=== PATIENT | female | born 2000 | race Hispanic/Latino ===

== ENCOUNTER → 2022-06-05 | Outpatient (CLI) | payer OTHER ==
[2022-06-06 09:44] LABS: BASOPHILS % (AUTO) 0.5 % (0.0-5.0); EOSINOPHILS % (AUTO) 1.5 % (0.0-8.0); HEMATOCRIT 39.3 % (36-48); LYMPHOCYTES % (AUTO) 34.1 % (21.0-51.0); MEAN CORPUSCULAR HEMOGLOBIN 27.7 pg (27.0-33.0); MEAN CORPUSCULAR HGB CONC 33.6 g/dL (32.0-36.0); MEAN CORPUSCULAR VOLUME 82.6 fL (79-99); MONOCYTES % (AUTO) 9.2 % (3.0-13.0); NEUTROPHILS % (AUTO) 54.4 % (40.0-77.0); PLATELET COUNT (AUTO) 264 K/uL (130-400); RED BLOOD CELL COUNT(AUTO) 4.76 MIL/uL (4.00-5.50); RED CELL DISTRIBUTION WIDTH 15.8 % (11.0-15.5); WHITE BLOOD COUNT (AUTO) 6.7 K/uL (4.8-10.8)
[2022-06-06 10:04] LABS: HEMOGLOBIN A1C 5.3 % (4.0-6.0)
[2022-06-06 10:10] LABS: ALBUMIN 4.1 g/dL (3.5-5.0); CREATININE 0.7 mg/dL (0.5-1.5); POTASSIUM 3.4 mmol/L (3.5-5.1); THYROID STIMULATING HORMONE 1.34 uIU/mL (0.36-3.74); TOTAL PROTEIN, SERUM 7.9 g/dL (6.0-8.3)
[2022-06-06 10:13] LABS: RAPID PLASMA REAGIN NONREACTIVE (NONREACTIVE)
== END | disposition home or self-care (01) ==
LOC: LAB 09:30
PROVIDERS: ATTEND Obstetrics & Gynecology
DX: Z13.6 Encounter for screening for cardiovascular disorders (principal); Z13.0 Encounter for screening for diseases of the blood and blood-forming organs and certain disorders involving the immune mechanism; Z13.1 Encounter for screening for diabetes mellitus; E11.9 Type 2 diabetes mellitus without complications; Z13.220 Encounter for screening for lipoid disorders; Z11.3 Encounter for screening for infections with a predominantly sexual mode of transmission
CPT/HCPCS: 36415; 80053; 80061; 83036; 84443; 85025; 86592; 86701; 87340; 87390

== ENCOUNTER → 2022-12-19 | Outpatient (CLI) | payer OTHER | END | disposition home or self-care (01) | LOC: LAB 07:44 | PROVIDERS: ATTEND Obstetrics & Gynecology | DX: Q76.0 Spina bifida occulta (principal) | CPT/HCPCS: 36415; 82105 ==

== ENCOUNTER 2023-05-21 09:53 | Observation (INO) | payer OTHER ==
[~2023-05-21] VITALS: Ht 157.5 cm; Wt 64.9 kg
== END 2023-05-21 12:20 | disposition home or self-care (01) ==
LOC: LDH 09:53
PROVIDERS: ADMIT Obstetrics & Gynecology; ATTEND Obstetrics & Gynecology
DX: Z34.83 Encounter for supervision of other normal pregnancy, third trimester (principal); Z3A.38 38 weeks gestation of pregnancy
CPT/HCPCS: 59025; 76805; G0378 ×2; G0379

== ENCOUNTER 2025-07-22 08:13 | Emergency (ER) | payer OTHER ==
[~2025-07-22] VITALS: Ht 154.9 cm; Wt 53.5 kg
[~2025-07-22 08:13] MED LIST: PREN-226 PO
--- NOTE | 2025-07-22 08:48 | ERN ---
ED Note History of Present Illness Stated Complaint: HEADACHE Chief Complaint: Headache Time Seen by MD: 08:13 Dictation: 24-year-old female no past medical history remarkable presents to emergency room with the complaints of headache for the past two days. Patient states that she has progressively had worsening headache for the point where she took Motrin and Tylenol with minimal effects. Patient states that the pain is in the front side of the head. No vomiting or diarrhea. Associated nausea. No chest pain. No palpitations. No urinary symptoms. Of note patient has a younger child at home with a similar URI symptoms. Allergies: Coded Allergies: No Known Drug Allergies (Unverified Allergy, Unknown, 05/21/23) Home Meds Reported Medications Vit No.179/Iron/Folic ( Tablet) 1 Each Tablet, 1 EACH PO HS, TAB 05/29/23 Past Medical History Past Medical History: No Pertinent History Surgical History: None Review of System Dictation Positive for headache and nausea Review of Systems: was completed, & the rest were negative. Initial Vital Sign VS Vital Signs Date Time Temp Pulse Resp B/P (MAP) Pulse Ox O2 Delivery O2 Flow Rate FiO2 07/22/25 08:15 98.2 96 16 107/72 0 Room Air 0 07/22/25 08:18 21 Physical Exam Dictation GENERAL APPEARANCE NAD, activity normal for age, well developed/ well nourished, no cyanosis, pallor, or diaphoresis. EYES lids/conjunctiva normal. Positive tearing. Pupils equal round reactive to light, EOMI EARS/NOSE/THROAT Mucous membranes moist, nares normal, lips/teeth normal uvula midline without oral pharyngeal erythema, exudate or swelling TMs normal bilaterally. No lymphangitis/lymphedema. HEAD/NECK normocephalic atraumatic, no facial trauma, neck is supple. No nuchal rigidity RESPIRATORY respiratory effort normal, speaks in full sentences, no tripod position, no accessory muscle use. Lungs clear to auscultation without rhonchi, wheezes, rales CARDIAC Regular rate and rhythm, no edema. ABDOMINAL Soft, ND/NT. No evidence of fluid wave. No pulsatile masses on exam, rebound tenderness, Vallecillo sign or pain over Mcburney's point. MUSCLES/EXTREMITIES No abnormal range of motion, no swelling. SKIN Warm, pink and dry. No rashes, dermatoses, petechiae or lesions. NEUROLOGICAL Speech is clear and appropriate. Normal level of consciousness. Gait and coordination are normal. 5/5 strength in all extremities. PSYCH Normal mood and affect. Judgement/competence is appropriate Results (Laboratory/Radiology) Laboratory/Radiology Laboratory Tests Test 07/22/25 08:20 Urine Color YELLOW (YELLOW) Urine Appearance CLEAR (CLEAR) Urine pH 6.5 (5.0-8.0) Urine Specific [place] 1.027 (1.001-1.031) Urine Protein 10 mg/dL (NEGATIVE) H Urine Glucose (UA) NEGATIVE mg/dL (NEGATIVE) Urine Ketones 150 mg/dL (NEGATIVE) H Urine Occult Blood +- (TRACE) (NEGATIVE) H Urine Nitrate NEGATIVE (NEGATIVE) Urine Bilirubin NEGATIVE mg/dL (NEGATIVE) Urine Urobilinogen 3 mg/dL (0.2-1.0) H Urine Leukocyte Esterase 75 Tyson/uL (NEGATIVE) H Urine RBC 2-5 /HPF (0-1) H Urine WBC 2-5 /HPF (0-1) H Urine Squamous Epithelial Cells MOD /HPF (0-2) Urine Bacteria RARE /HPF (None Seen) Urine HCG, Qualitative NEGATIVE (NEGATIVE) ED Course ED Course Orders Procedure Category Date Status Time Urinalysis Profile LAB 07/22/25 Complete 08:22 ,Urine Test LAB 07/22/25 Complete 08:22 0.9%Nacl 1000ml (Ns PHA 07/22/25 Complete 1000ml) 08:30 0.9%Nacl 1000ml (Ns PHA 07/22/25 In Process 1000ml) 09:30 Ketorolac PHA 07/22/25 Complete Tromethamine 15mg/Ml 09:00 Prochlorperazine PHA 07/22/25 Complete 10mg/2ml Inj 09:00 Diphenhydramine Hcl PHA 07/22/25 Complete (Benadryl Inj) 09:00 Culture Urine JAVIER 07/22/25 In Process 09:29 Current Medications Medications (Trade) Dose Ordered Sig/Clee Route PRN Reason Start Time Stop Time Status Last Admin Dose Admin Diphenhydramine HCl (BENAdryl INJ) 25 mg ONCE ONCE IV 07/22/25 09:00 07/22/25 09:01 DC 07/22/25 08:51 Ketorolac Tromethamine (toRADol) 15 mg ONCE ONCE IV 07/22/25 09:00 07/22/25 09:01 DC 07/22/25 08:52 Prochlorperazine Edisylate (Compazine 10mg/ 2ml Inj) 10 mg ONCE ONCE IV 07/22/25 09:00 07/22/25 09:01 DC 07/22/25 08:52 Sodium Chloride 1,000 ml @ 0 mls/hr Q0M IV 07/22/25 09:30 08/21/25 09:29 Sodium Chloride 1,000 ml @ 1,000 mls/hr Q1H IV 07/22/25 08:30 07/22/25 09:29 DC 07/22/25 08:53 Vital Signs Date Time Temp Pulse Resp B/P (MAP) Pulse Ox O2 Delivery O2 Flow Rate FiO2 07/22/25 08:27 98.2 89 19 127/69 95 Room Air* 0 21 07/22/25 08:18 98.2 96 16 107/72 100 Room Air* 0 21 07/22/25 08:15 98.2 96 16 107/72 0 Room Air 0 24-year-old female with headache. Likely migraine related. We will administer migraine cocktail and re-evaluate. 9:28 a.m.: Patient is sleeping comfortably at this time. Fluids still running Patient re-evaluated at 9:44 a.m.. Well-appearing no acute distress. Vital signs stable. Patient states that her headache has resolved after cocktail. She is easily arousable and ready to go home. Advised on concerning signs and symptoms for which to return to the emergency room. We will have patient follow up with the PCP. All questions answered at this time. Medical Decision Making MDM 24-year-old female with headache. No nuchal rigidity. No Kernig sign. Likely migraine. We will give migraine cocktail and reassess. DX & DISP Disposition: Discharge Departure Impression: Primary Impression: Migraine Condition: Stable Referrals: HENNA MEDRANO MD (PCP) MARNIE TURNER MD Jul 22, 2025 08:48
[2025-07-22] MEDS: PROCHLORPERAZINE 10MG/2ML INJ IV ONE (08:52)
[2025-07-22] MEDS: 0.9%NACL 1000ML 1,000 ML IV SCH (08:53)
[2025-07-22 09:26] LABS: APPEARANCE,URINE CLEAR (CLEAR); GLUCOSE, URINE (UA) NEGATIVE (NEGATIVE); LEUKOCYTE ESTERASE ,URINE 75 Leu/uL (NEGATIVE); NITRATE,URINE NEGATIVE (NEGATIVE); OCCULT BLOOD,URINE +- (TRACE) (NEGATIVE)
[2025-07-22 09:28] LABS: HCG,QUALITATIVE URINE NEGATIVE (NEGATIVE)
[2025-07-22 09:29] LABS: ADD UA MICROSCOPIC YES
[2025-07-22] MEDS ORDERED: 0.9%NACL 1000ML 1,000 ML IV SCH (09:30)
[2025-07-22 09:31] LABS: SQUAMOUS EPITHELIAL CELL,UR MOD /HPF (0-2)
[2025-07-22 10:07] VITALS: BP 100/52; PULSE 94; RESP 20; TEMP 98.7; O2SAT 99
--- NOTE | 2025-07-22 10:07 | NUR ---
DC PATIENT WAS DC'D BY DR YUE Watts DC'D PATIENTS IV WITH CATH STILL INTACT AND APPLIED 2X2 GAUZE WITH COBAN, I EXPLAINED TO PATIENT TO FOLLOW UP WITH PCP, PROVIDED INFO BASED ON DIAGNOSIS, PRESCRIPTIONS AND ANSWERED ANY FOLLOW UP QUESTIONS, PATIENT AMBULATED OUT OF ED, NO COMPLICATIONS
== END 2025-07-22 10:06 | disposition home or self-care (01) ==
LOC: EDH 08:13
DX: G43.909 Migraine, unspecified, not intractable, without status migrainosus (principal); Z79.899 Other long term (current) drug therapy
CPT/HCPCS: 99284; 96374; 96375; 96361; 87086; 81001; 81025; J1885; J1200; J7030; J0780